=== PATIENT | male | born 2000 | race Caucasian/White ===

== ENCOUNTER 2025-07-04 11:28 | Emergency (ER) | payer OTHER ==
[2025-07-04] MEDS: Tetracaine HCl/PF 0.5% 4 ML Bottle EYELF ONE (13:41)
[2025-07-04] MEDS: Fluorescein 1 MG Ophth Strip EYELF ONE (13:57)
== END 2025-07-04 14:20 | disposition home or self-care (01) ==
LOC: JP.ED 11:28
DX: T15.12XA Foreign body in conjunctival sac, left eye, initial encounter (principal); Z86.16 Personal history of COVID-19; W44.8XXA Other foreign body entering into or through a natural orifice, initial encounter
CPT/HCPCS: 65222; 99283; 99283-25